=== PATIENT | female | born 1965 | race Caucasian/White ===

== ENCOUNTER 2018-11-21 12:27 | Emergency (ER) | payer OTHER ==
[2018-11-21] MEDS ORDERED: Ketorolac Tromethamine 60 MG/2 ML VIAL ONE (12:49)
[2018-11-21 13:03] LABS: Clarity Turbid (Clear)
[2018-11-21 13:04] LABS: Glucose, Urine (Dipstick) Unable to Interpret mg/dL (Negative); Leukocyte Large (Negative); Nitrite Negative (Negative); Protein, Urine (Dipstick) > or equal to 300 mg/dL (Neg-Trace)
[2018-11-21 13:05] LABS: Bilirubin Large (Negative); Blood, Urine Large (Negative)
[2018-11-21 13:07] LABS: Bacteria/HPF 1+ HPF (None Seen); RBC/HPF Greater than 50 HPF (0-3); Squamous Epithelial 0-3 HPF (0-3); WBC/HPF 21-50 HPF (0-3)
== END 2018-11-21 13:16 | disposition home or self-care (01) ==
LOC: BURERS 12:27
DX: N39.0 Urinary tract infection, site not specified (principal); I10 Essential (primary) hypertension; E11.9 Type 2 diabetes mellitus without complications
CPT/HCPCS: 81003; 81015; 87086; 96372; 99283; J1885